=== PATIENT | male | born 1965 | race Caucasian/White ===

== ENCOUNTER 2017-12-02 17:14 | Emergency (ER) | payer OTHER ==
[2017-12-02 17:57] VITALS: BP 123/71
--- NOTE | 2017-12-02 18:07 | UC ---
Eye Complaint HPI - HPI Summary HPI Summary: 52 year old male presents with left eye pain/redness and left eyelid swelling. - History of Current Complaint Chief Complaint: UCEye Stated Complaint: LEFT EYE COMPLAINT Time Seen by Provider: 12/02/17 18:06 Hx Obtained From: Patient Onset/Duration: Sudden Onset Timing: Constant Severity Initially: Moderate Severity Currently: Moderate Pain Scale Used: 0-10 Numeric - 2 Location of Injury: Conjunctiva, Eye Lid (lower) Character: Sharp Aggravating Factor(s): Nothing Alleviating Factor(s): Nothing Associated Signs And Symptoms: Positive: Negative - Allergies/Home Medications Allergies/Adverse Reactions: Allergies Allergy/AdvReac Type Severity Reaction Status Date / Time No Known Allergies Allergy Verified 12/02/17 17:51 PMH/Surg Hx/FS Hx/Imm Hx Previously Healthy: Yes - Surgical History Surgical History: Yes Surgery Procedure, Year, and Place: tonsils - Family History Known Family History: Positive: None - Social History Alcohol Use: None Substance Use Type: None Smoking Status (MU): Never Smoked Tobacco Type: Smokeless Tobacco - Immunization History Most Recent Influenza Vaccination: no 2017 Review of Systems Constitutional: Negative Skin: Negative Eyes: Eye Redness ENT: Negative Respiratory: Negative Cardiovascular: Negative Gastrointestinal: Negative Genitourinary: Negative Motor: Negative Neurovascular: Negative Musculoskeletal: Negative Neurological: Negative Psychological: Negative All Other Systems Reviewed And Are Negative: Yes Physical Exam Triage Information Reviewed: Yes Vital Signs: Initial Vital Signs Temp 37.1 C 12/02/17 17:51 Pulse 66 12/02/17 17:51 Resp 16 12/02/17 17:51 BP 123/71 12/02/17 17:51 Pulse Ox 98 12/02/17 17:51 Vital Signs Reviewed: Yes Eyes: Positive: Conjunctiva Inflamed, Discharge ENT Exam: Normal Dental Exam: Normal Neck exam: Normal Neck: Positive: 1 Respiratory Exam: Normal Cardiovascular Exam: Normal Abdominal Exam: Normal Musculoskeletal Exam: Normal Neurological Exam: Normal Psychological Exam: Normal Skin Exam: Normal Eye Complaint Course/Dx - Differential Dx/Diagnosis Provider Diagnoses: left eyelid swelling. left GPC Discharge - Discharge Plan Condition: Stable Disposition: HOME Prescriptions: Amoxicillin PO (*) [Amoxicillin 875 MG (*)] 875 mg PO BID #14 tab Tobramycin/Dexameth OPTH.SUSP* [Tobradex 0.3-0.1%*] 1 drop LEFT EYE Q4H #1 btl Patient Education Materials: Conjunctivitis (ED) Referrals: Silvio Ramos MD [Medical Doctor] - UBALDO Godwin [Primary Care Provider] -
== END 2017-12-02 18:29 | disposition home or self-care (01) ==
LOC: UCCORT 17:14
DX: H02.845 Edema of left lower eyelid (principal); H10.412 Chronic giant papillary conjunctivitis, left eye
CPT/HCPCS: 99212; G0463

== ENCOUNTER 2018-05-11 20:58 | Emergency (ER) | payer SELFPAY ==
[2018-05-11 21:14] VITALS: BP 122/77
--- NOTE | 2018-05-11 21:22 | UC ---
Abdominal Pain Male HPI - HPI Summary HPI Summary: Pt c/o sudden onset of generalized abdominal an ddiarrhea. Pt reports that he ate a burrito on 05/09/18 and ~ 1-2 hours later began with generalized abdominal pain and frequent diarrhea. Pt denies hx of IBS, crohns, diverticulitis or colitis. Denies fever chills nausea or vomiting. Pt has not taken any antidiarrheal medicine - History of Current Complaint Chief Complaint: UCAbdominalPain Stated Complaint: UPSET STOMACH Time Seen by Provider: 05/11/18 21:13 Hx Obtained From: Patient Onset/Duration: Sudden Onset, Lasting Days Severity Initially: Mild Severity Currently: Severe Pain Intensity: 10 Location: Diffuse Radiates: No Character: Colicy, Cramping Aggravating Factor(s): Food Alleviating Factor(s): Other - has not tried anything to improve symptoms Associated Signs And Symptoms: Positive: Diarrhea - Allergies/Home Medications Allergies/Adverse Reactions: Allergies Allergy/AdvReac Type Severity Reaction Status Date / Time No Known Allergies Allergy Verified 05/11/18 21:10 Home Medications: Home Medications NK [No Home Medications Reported] 05/11/18 [History Confirmed 05/11/18] PMH/Surg Hx/FS Hx/Imm Hx Previously Healthy: Yes - Surgical History Surgical History: Yes Surgery Procedure, Year, and Place: tonsils - Family History Known Family History: Positive: Cardiac Disease - Social History Occupation: Employed Full-time Alcohol Use: None Substance Use Type: None Smoking Status (MU): Never Smoked Tobacco Type: Smokeless Tobacco Have You Smoked in the Last Year: No - Immunization History Most Recent Influenza Vaccination: no 2017 Review of Systems Constitutional: Negative Skin: Negative Eyes: Negative ENT: Negative Respiratory: Negative Cardiovascular: Negative Gastrointestinal: Abdominal Pain, Diarrhea Genitourinary: Negative Motor: Negative Neurovascular: Negative Musculoskeletal: Negative Neurological: Negative Psychological: Negative Is Patient Immunocompromised?: No All Other Systems Reviewed And Are Negative: Yes Physical Exam Triage Information Reviewed: Yes Appearance: Well-Appearing Vital Signs: Initial Vital Signs Temp 98.6 F 05/11/18 21:11 Pulse 66 05/11/18 21:11 Resp 20 05/11/18 21:11 BP 122/77 05/11/18 21:11 Pulse Ox 99 05/11/18 21:11 Vital Signs Reviewed: Yes Eye Exam: Normal ENT Exam: Normal Dental Exam: Normal Neck exam: Normal Respiratory Exam: Normal Cardiovascular Exam: Normal Abdomen Description: Positive: Other: - c/o tenerness LLQ Bowel Sounds: Positive: Present Musculoskeletal Exam: Normal Neurological Exam: Normal Psychological Exam: Normal Skin Exam: Normal Abd Pain Male Course/Dx - Course Course Of Treatment: I discussed with the pt the need to have routine colonoscopy given his age. Additionally, pt dnied any personal or family hx of any GI disorder. - Differential Dx/Clinical Impression Differential Diagnosis/HQI/PQRI: Diverticulitis Provider Diagnoses: gastroenteritis. food poisoning. Discharge - Sign-Out/Discharge Documenting (check all that apply): Discharge/Admit/Transfer - Discharge Plan Condition: Stable Disposition: HOME Patient Education Materials: Loperamide (By mouth), Acute Diarrhea (ED), Abdominal Pain (ED), Nutrition Tips for Relief of Diarrhea (ED) Referrals: UBALDO Godwin [Primary Care Provider] - If Needed Additional Instructions: Please follow up with your PCP as needed and to discuss having a colonoscopy as routine screening for health maintenance. - Billing Disposition and Condition Condition: STABLE Disposition: Home
[2018-05-11] MEDS ORDERED: Loperamide CAP* 2 MG PO ONE (21:23)
== END 2018-05-11 21:33 | disposition home or self-care (01) ==
LOC: UCCORT 20:58
DX: A05.9 Bacterial foodborne intoxication, unspecified (principal)
CPT/HCPCS: 99212; A9270-GY; G0463